=== PATIENT | male | born 1980 | race Two or more races ===

== ENCOUNTER → 2020-07-14 06:00 | Outpatient (CLI) | payer OTHER | END | disposition home or self-care (01) | LOC: ADM 07-13 12:30 → LAB 06:00 → EDSTATUS 07-20 12:30 → CIR.AMB 07-20 12:30 | PROVIDERS: ATTEND Colon & Rectal Surgery | DX: U07.1 COVID-19 (principal); K60.5 Anorectal fistula; K92.1 Melena ==

== ENCOUNTER 2020-08-23 07:00 | Day surgery (SDC) | payer OTHER ==
[~2020-08-23] VITALS: Ht 175.3 cm; Wt 127.0 kg
== END 2020-08-23 13:00 | disposition home or self-care (01) ==
LOC: CIR.AMB 07:00 → EDSTATUS 09:00 → SURH 09:00 → CIR.AMB 13:00 → SURH 13:00 → O/R 14:20
PROVIDERS: ATTEND Colon & Rectal Surgery
DX: K60.5 Anorectal fistula (principal); Z20.828 Contact with and (suspected) exposure to other viral communicable diseases

== ENCOUNTER 2021-07-12 06:54 | Day surgery (SDC) | payer OTHER | END 2021-07-12 14:25 | disposition home or self-care (01) | LOC: CIR.AMB 06:54 | PROVIDERS: ATTEND Colon & Rectal Surgery | DX: K60.5 Anorectal fistula (principal); Z20.822 Contact with and (suspected) exposure to COVID-19 ==

== ENCOUNTER 2021-12-06 07:49 | Day surgery (SDC) | payer OTHER | END 2021-12-06 16:10 | disposition home or self-care (01) | LOC: CIR.AMB 07:49 | PROVIDERS: ATTEND Colon & Rectal Surgery | DX: K60.4 Rectal fistula (principal) ==

== ENCOUNTER 2023-05-13 15:45 | Inpatient (IN) | payer OTHER ==
[~2023-05-13] VITALS: Ht 175.3 cm; Wt 127.0 kg
[2023-05-13] MEDS ORDERED: COZAAR50 MG PO (16:35)
[2023-05-13] MEDS ORDERED: CIPRO100 MG (16:35)
[2023-05-21] MEDS ORDERED: INTEGRA F CAPS1 EACH PO (09:18)
[2023-05-21] MEDS ORDERED: [UNRECOGNIZED DRUG - OTHER] PO (09:18)
[2023-05-21] MEDS ORDERED: INTESTINEX680 M1 PO (09:18)
== END 2023-05-21 10:18 | disposition home or self-care (01) | DRG 394 ==
LOC: ER 15:45 → SURH 20:16
PROVIDERS: ADMIT Colon & Rectal Surgery; ATTEND Colon & Rectal Surgery
PROC: BW21YZZ Computerized Tomography (CT Scan) of Abdomen and Pelvis using Other Contrast (ICD-10-PCS; 2023-05-13)
PROC: 8E0ZXY6 Isolation (ICD-10-PCS; principal; 2023-05-14)
PROC: 30233R1 Transfusion of Nonautologous Platelets into Peripheral Vein, Percutaneous Approach (ICD-10-PCS; 2023-05-20)
DX: K60.5 Anorectal fistula (principal); C92.01 Acute myeloblastic leukemia, in remission; D61.818 Other pancytopenia; L02.215 Cutaneous abscess of perineum; Z68.41 Body mass index [BMI] 40.0-44.9, adult; D69.6 Thrombocytopenia, unspecified; E07.81 Sick-euthyroid syndrome; D70.8 Other neutropenia; E66.01 Morbid (severe) obesity due to excess calories; Z86.16 Personal history of COVID-19; Z87.891 Personal history of nicotine dependence; B95.61 Methicillin susceptible Staphylococcus aureus infection as the cause of diseases classified elsewhere